=== PATIENT | female | born 1990 | race Caucasian/White ===

== ENCOUNTER 2021-06-15 13:52 | Emergency (ER) | payer OTHER ==
[2021-06-15] MEDS ORDERED: BACTRIM DS TAB1 EACH PO (18:33)
== END 2021-06-15 18:29 | disposition home or self-care (01) ==
LOC: ER1 13:52
DX: U07.1 COVID-19 (principal); N39.0 Urinary tract infection, site not specified; F17.200 Nicotine dependence, unspecified, uncomplicated
CPT/HCPCS: 81001; 84703; 87077; 87086; 87186; 99283